=== PATIENT | female | born 1995 | race Caucasian/White ===

== ENCOUNTER 2019-02-27 16:20 | Outpatient (REF) | payer BC, SELFPAY | END 2019-02-27 16:40 | LOC: NCHCO 16:20 | PROVIDERS: PCP Nurse Practitioner Family; Visit Provider Nurse Practitioner Family | DX: R10.30 Lower abdominal pain, unspecified (principal) | CPT/HCPCS: 87086 ==

== ENCOUNTER 2020-10-24 13:19 | Emergency (ER) | payer SELFPAY ==
[2020-10-24 13:26] VITALS: BP 152/94; PULSE 109; RESP 17; TEMP 37.1; O2SAT 100
--- NOTE | 2020-10-24 13:30 | DI.CT_ITS ---
Exam(s) CT ABDOMEN PELVIS W EXAM: CT ABDOMEN PELVIS W CLINICAL HISTORY: R mid abdomen pain, nausea. TECHNIQUE: Imaging Protocol: Axial computed tomography images with coronal and sagittal reformatted images were created and reviewed CONTRAST MATERIAL: Intravenous: Omnipaque 350 Contrast volume:100 ml Oral: / no COMPARISON: US ABDOMEN ULTRASOUND (P) from 03/02/2014 US ABDOMEN ULTRASOUND (P) from 03/02/2014 FINDINGS: ABDOMEN: Lung Bases: Normal where visualized. Liver: Normal density. No measurable mass. Gallbladder and biliary tract: No radiodense calculus or dilation. Pancreas: Normal density, no abnormal calcifications or inflammatory process. Spleen: Normal. Kidneys: Normal size, contour and axis. No radiodense stones or obstructive uropathy. No masses seen. Multi focal patchy areas of decreased perfusion in the right kidney, suspicious for pyelonephritis. There is no Rox nephric collection. The left kidney appears normal. Adrenal glands: No masses seen. Abdominal Aorta: Abdominal portion non-dilated. PELVIS: Bladder: Symmetric distention, no gross wall thickening. No stones. Bowel: Somewhat limited evaluation due to lack of intra-abdominal fat and lack of oral contrast. No obstruction or bowel wall thickening. Peritoneal cavity: Small amount of fluid in the low pelvis, likely physiologic. Bones: Within normal limits. Reproductive organs: Within normal limits. No evidence of ovarian cyst. Lymph nodes: Unremarkable. Impression: Multifocal areas of decreased right renal perfusion, suspicious for pyelonephritis. No stones or hyd ronephrosis. RADIATION DOSE DELIVERED: 566mGy.cm Total DLP DATA REPOSITORY: All CT scans at this facility are submitted to the National Radiology Data Registry (NRDR) Dose Index Registry (DIR) with the [employer] (A[employer]). RADIATION OPTIMIZATION: All CT scans at this facility use at least one of these dose optimization te chniques: automated exposure control; mA and/or kV adjustment per patient size (includes targeted exa ms where dose is matched to clinical indication); or iterative reconstruction.
[2020-10-24 13:45] LABS: Bilirubin Negative (Negative); Blood Small (Negative); Clarity Cloudy (Clear); Glucose Negative (Negative); Ketones Trace mg/dL (Negative); Leukocyte Esterase Small (Negative); Nitrite Negative (Negative)
--- NOTE | 2020-10-24 13:46 | W.ED.GENAD ---
Discharge Plan Disposition Patient Disposition: HOME Condition: Improving Discharge Details Clinical Impression: Pyelonephritis of right kidney Primary Care Provider: Lety Ndiaye ED Provider: Edward Herrmann Home Meds and New Rx's Prescriptions: New cephalexin 500 mg capsule 500 mg PO TID 7 Days Qty: 21 RF: 0 Continued citalopram 40 mg tablet 40 mg PO DAILY RF: 0 Discharge Instructions Instructions: Urinary Tract Infection in Women (ED) Additional Instructions: Small, frequent sips of fluids so that you maintain good hydration. May continue Tylenol and/or ibuprofen as needed for pain. Take antibiotics as prescribed until finished. Next dose tomorrow morning. Return to the ER for any acute concerns. Stand Alone Forms: PENDING COVID-19 TESTING Medical Decision Making This is an otherwise healthy 25-year-old female who presents from home complaining of gradual onset 2 nights ago of mid abdomen pain is now later on the right-sided and radiates to her flank. Is worse with movement problems associated with burning with urination, and feels similar to previous ovarian cyst. She arrives to the ER interactive, well-appearing. She is mild tachycardia at triage. She is tender in the mid abdomen and differential notes includes pyelonephritis, appendicitis, ovarian cyst or other process. IV access established, patient given parenteral analgesia, antiemetic, fluids, referred for laboratory testing, urinalysis, and CT images. Patient's labs are notable for elevated white blood cell count of 18. Urinalysis likely contaminated. CT images to show evidence of acute right pyelonephritis without other significant findings. Please see formal report. Parenteral antibiotics initiated with ceftriaxone. Patient improving, she is appropriate for trial of outpatient management. She understands indications to seek reevaluation in the ER. HPI General Mode of arrival: ambulatory. Date/Time Provider Initiated Documentation: 10/24/20 13:20. Limitations to Documentation: no limitations. Information obtained by: patient. History of Present Illness 25 year old F presents to the emergency department with the chief complaint of Right abdominal pain for 2 days, described as moderate, Quality is described as dull, and is localized to the abdomen and right. Patient reports radiation to back. Patient started experiencing this day(s) and it has been constant and colicky. Rest improves symptom(s), Movement worsens symptoms . Patient notes fever/chills and loss of appetite. 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 Not . Last menstrual period approximately 3 weeks ago [facility] Social History Smoking/Tobacco Use Status: Never Smoking risk assessment performed?: Yes Drug use: Never Do you feel safe at home: Yes Do you feel safe in your relationship?: Yes Female Reproductive History Menstrual control method: implanted Exam Narrative Exam Narrative: GEN: awake, alert, oriented 3. Pleasant, well groomed, interactive. HEAD: Normocephalic, atraumatic ENT: Mucous membranes moist, oropharynx unremarkable, External ear exam unremarkable EYES: PERRL, EOMI NECK: Full ROM, no ALVA, no menigismus CHEST/RESP: Nontender, clear to auscultation bilateral, no wheeze/rhonchi/rales CARDIOVASCULAR: RRR, no murmur, rub caterina. 2+ Rad pulse bilateral ABDOMEN: Soft, right mid abdomen tenderness with mild rebound, no mass. +Bowel sounds EXT: Full ROM, no edema, no rash Neuro: Grossly normal neurologic exam, conversant, interactive. Psych: Speech fluent, thoughts congruent, affect normal Course Vital Signs Vital signs: Vital Signs Temperature 37.1 C 10/24/20 13:26 Pulse 109 H 10/24/20 13:26 Respiratory Rate 17 10/24/20 13:26 Blood Pressure 152/94 H 10/24/20 13:26 Pulse Oximetry 100 10/24/20 13:26 Temperature 37.1 C 10/24/20 13:26 Temperature Source Temporal Artery Scan 10/24/20 13:26 Pulse 109 H 10/24/20 13:26 Respiratory Rate 17 10/24/20 13:26 Respiratory Effort 10/24/20 13:29 Blood Pressure 152/94 H 10/24/20 13:26 Blood Pressure Position Sitting 10/24/20 13:26 Pulse Oximetry 100 10/24/20 13:26 Oxygen Delivery Method Room Air 10/24/20 13:26 Oxygen Flow Rate 0 10/24/20 13:26 Pain Level 8 10/24/20 13:26 Lab/Test Results Lab/Test Results: POC- Test(urine) Negative
[2020-10-24 13:56] LABS: Bacteria Many HPF (Negative); C & S Indicated? No/Sq. Contamination; Casts Negative LPF (Negative); Crystals Negative HPF (Negative); Epithelial Cells Many HPF (Negative); Mucus Negative (Negative); WBC 20-50 HPF (0-5)
[2020-10-24 13:58] LABS: Absolute Basophil Count 0.04 10^3/uL (0.0-0.2); Absolute Eosinophil Count 0.05 10^3/uL (0.0-0.7); Absolute Lymphocyte Count 1.24 10^3/uL (1.2-3.4); Absolute Monocyte Count 0.85 10^3/uL (0.1-0.8); Basophils % 0.2; Eosinophils % 0.3; HCT 37.3 % (36.0-46.0); HGB 12.2 g/dL (11.2-15.7); Immature Grans % 1.1; Lymphocytes % 6.8; MCH 29.7 pg (27.0-33.0); MCHC 32.7 % (32.0-36.0); MCV 90.8 fL (80-95); MPV 11.7 fL (8.0-11.0); Monocytes % 4.7; Neutrophils % 86.9; Nucleated RBC 0 %; Platelet Count 170 10^3/uL (130-400); RBC 4.11 10^6/uL (3.93-5.22); RDW 12.4 % (11.7-14.6); RDW-SD 41.1 fL; WBC 18.18 10^3/uL (4.4-10.8)
[2020-10-24 14:15] LABS: Lipase 47 U/L (73-393)
[2020-10-24 14:18] LABS: ALT 22 U/L (14-59); AST 13 U/L (15-37); Alkaline Phosphatase 71 U/L (46-116); Anion Gap 9.4 mmol/L (3-11); BUN 7 mg/dL (7-18); Bilirubin, Total 1.6 mg/dL (0.2-1.0); CO2 26.6 mmol/L (21.0-32.0); CREATININE 0.8 mg/dL (0.55-1.02); Chloride 100 mmol/L (98-107); Glucose 111 mg/dL (74-106); Potassium 3.4 mmol/L (3.5-5.1); Sodium 136 mmol/L (136-145)
[2020-10-24] MEDS: Omnipaque 350 MG/ML 100 ML BTL IJ (14:19)
[2020-10-24] MEDS: Normal Saline - Diluent 50 ML VIAL IV (14:20)
[2020-10-24] MEDS: Ondansetron 4 MG/2 ML VIAL IVP (14:31)
[2020-10-24] MEDS: Normal Saline Flush 10 ML SYR IVP (14:31)
[2020-10-24 14:33] VITALS: BP 133/78; PULSE 110; RESP 16; O2SAT 97
[2020-10-24] MEDS: Normal Saline 1,000 ML 1000 ML IV (14:33)
[2020-10-24] MEDS: cefTRIAXone 1 GM/50 ML BAG IVPB (14:51)
[2020-10-24 14:52] VITALS: TEMP 37.4
[2020-10-24 15:22] LABS: Bilirubin Negative (Negative); Blood Small (Negative); Clarity Cloudy (Clear); Glucose Negative (Negative); Ketones Negative (Negative); Leukocyte Esterase Trace (Negative); Nitrite Negative (Negative); Specific Gravity 1.015 (1.005-1.025)
[2020-10-24 15:30] LABS: Bacteria Moderate HPF (Negative); C & S Indicated? Yes; Casts Negative LPF (Negative); Crystals Negative HPF (Negative); Epithelial Cells Few HPF (Negative); Mucus Negative (Negative)
[2020-10-24] MEDS: Ketorolac 15 MG/ML VIAL IM (15:33)
[2020-10-24] MEDS: Cephalexin 500 MG CAP, 2 CAPS/BTL PO (15:33)
[2020-10-24 16:27] VITALS: BP 126/75; PULSE 110; RESP 18; TEMP 38.3; O2SAT 97
[2020-10-24] MEDS: Acetaminophen 500 MG TAB 1000 MG PO (16:35)
[2020-10-24 17:11] VITALS: BP 117/47; PULSE 107; RESP 17; TEMP 37.5; O2SAT 97
[2020-10-25 12:07] LABS: COVID-19 RT-PCR UVMMC Result Negative (Negative)
--- NOTE | 2020-10-25 18:00 | NUR.NOTE ---
Spoke with patient, verified identity and relayed negative covid test results to her.
== END 2020-10-24 17:08 | disposition home or self-care (01) ==
PROVIDERS: Emergency Provider Emergency Medicine; PCP Family Medicine
DX: N12 Tubulo-interstitial nephritis, not specified as acute or chronic (principal)
CPT/HCPCS: 36415; 80053; 81025; 83690; 96361; 96365; 96372; 96375; 99285; U0003; 74177; 81003; 81015; 85025; 87086; 99283; J0696; J1885; J2405; J3490

== ENCOUNTER 2021-05-14 13:16 | Outpatient (REF) | payer SELFPAY ==
--- NOTE | 2021-05-14 11:30 | PAPFT_PTH ---
PATIENT: Marcela Lugo LOC: NCN #:[id number] AGE/SX: 25/F ROOM: RE05/14/[address]: Lety Ndiaye : 1995 BED: DIS: 05/14/2021 SPEC #: [id number] RECD: 05/14/21 17:20 STATUS: MELVA REMyra #: [id number] TRAVIS: 05/14/21 11:[address]: Lety Ndiaye DEPT: [facility] Cytology RECD BY: Marichuy La Tissues: 1 - CX/ENDOCX FOR PAP SMEARS Procedures: PAP THIN PREP/UVM Screening Comments: [id number] (CHLAMYDIA/GC)
[2021-05-16 10:14] LABS: Chlamydia Result Negative (Negative); GC Result Negative (Negative)
== END 2021-05-14 13:17 | disposition home or self-care (01) ==
LOC: NCHCN 13:16
PROVIDERS: PCP Family Medicine; Visit Provider Family Medicine
DX: Z12.4 Encounter for screening for malignant neoplasm of cervix (principal); Z11.3 Encounter for screening for infections with a predominantly sexual mode of transmission
CPT/HCPCS: 87491; 87591; 88142

== ENCOUNTER 2022-01-29 21:40 | Emergency (ER) | payer SELFPAY ==
[2022-01-29 21:44] VITALS: BP 142/105; PULSE 98; RESP 18; TEMP 36.9; O2SAT 99
--- NOTE | 2022-01-29 22:05 | ED.GENADUL_ITS ---
Discharge Plan Disposition Patient Disposition: HOME Condition: Improving Discharge Details Clinical Impression: Laceration of left index finger Primary Care Provider: Lety Ndiaye ED Provider: Edward Herrmann Home Meds and New Rx's Prescriptions: Continued citalopram 40 mg tablet 40 mg PO DAILY Label Comments: TAKE 1 TABLET BY MOUTH EVERY DAY Discharge Instructions Instructions: Finger Laceration (ED) Additional Instructions: Leave current dressing in place 24 hours, then may remove and leave bandage in place for additional 24 hours, then may begin once daily gentle soap and water cleanse, pat dry and replace bandage. Return in 7 to 10 days for suture removal. Return sooner if you develop a fever, red, foul-smelling discharge from the wound or any other acute concern. Medical Decision Making 26-year-old female who suffered a laceration at home on a dish in her sink. It is on the volar aspect of her left index finger. The distal motor and sensory exam is normal. The wound was anesthetized, examined in a bloodless field, liberally irrigated, no evidence of foreign body seen. Prepped and draped in standard sterile fashion and repaired with 3 interrupted nylon sutures. Patient's tetanus is up-to-date. She is a good candidate for outpatient management and will return for suture removal. HPI General Mode of arrival: ambulatory . Date/Time Provider Initiated Documentation: 01/29/22 21:41 . Limitations to Documentation: no limitations . Information obtained by: patient . History of Present Illness 26 year old F presents to the emergency department with the chief complaint of Left index finger laceration at home, described as mild, Quality is described as dull and constant, and is localized to the left and upper extremity. Patient reports no radiation. Patient started experiencing this minute(s) No relieving factors improve symptom(s), No exacerbating factors reported . Patient notes denies weakness. Patient did receive the following treatments prior to arrival, other (Pressure dressing) Related Data Home Medications Medication Instructions Recorded Confirmed citalopram 40 mg tablet 40 mg PO DAILY 10/24/20 01/29/22 Allergies Allergy/AdvReac Type Severity Reaction Status Date / Time No Known Drug Allergies Allergy Unverified 01/29/22 21:46 General Stated Complaint: Laceration LENCHO: 4 Review of Systems Narrative: 6 systems reviewed and otherwise negative PFSH All Active Problems (Updated 01/29/22 @ 22:07 by Edward Herrmann MD) Pyelonephritis of right kidney (Acute) Laceration of left index finger (Acute) Anxiety (Acute 11/12/14) Contraception (Acute 02/09/14) Insertion of Nexplanon (Acute 04/27/16) Social History Smoking/Tobacco Use Status: Never Smoking risk assessment performed?: Yes Alcohol Intake: never Drug use: Never Substance use type: does not use Do you feel safe at home: Yes Do you feel safe in your relationship?: Yes Female Reproductive History Menstrual control method: implanted Exam Narrative Exam Narrative: GEN: awake, alert, oriented 3. Pleasant, well groomed, interactive. HEAD: Normocephalic, atraumatic EYES: PERRL, EOMI EXT: Full ROM, normal sensation. The left index finger has a volar laceration that is transverse and located just distal to the proximal flexor crease. Distal motor and sensory testing is normal. Neuro: Grossly normal neurologic exam, conversant, interactive. Psych: Speech fluent, thoughts congruent, affect normal Course Vital Signs Vital signs: Vital Signs Temperature 36.9 C 01/29/22 21:44 Pulse 98 H 01/29/22 21:44 Respiratory Rate 18 01/29/22 21:44 Blood Pressure 142/105 H 01/29/22 21:44 Pulse Oximetry 99 01/29/22 21:44 Temperature 36.9 C 01/29/22 21:44 Pulse 98 H 01/29/22 21:44 Respiratory Rate 18 01/29/22 21:44 Respiratory Effort Non-Labored 01/29/22 21:47 Blood Pressure 142/105 H 01/29/22 21:44 Pulse Oximetry 99 01/29/22 21:44 Pain Level 0 01/29/22 21:44 Procedures Laceration Laceration 1: Site: hand Side (If applicable): left Size (cm): 1.5 Description: linear Depth: simple, single layer Local Anesthetic: Lidocaine 1% Amount of anesthesia used (mL): 1 Pre-repair: wound explored, irrigated extensively and deep structures intact Skin layer closed with: nylon Size (cm): 4-0 Number of sutures: 3 Technique: simple, interrupted
== END 2022-01-29 22:20 | disposition home or self-care (01) ==
LOC: ER 22:22
PROVIDERS: Emergency Provider Emergency Medicine; PCP Family Medicine
DX: S61.211A Laceration without foreign body of left index finger without damage to nail, initial encounter (principal); W26.8XXA Contact with other sharp object(s), not elsewhere classified, initial encounter; Y92.009 Unspecified place in unspecified non-institutional (private) residence as the place of occurrence of the external cause
CPT/HCPCS: 12001; 99281; 99282

== ENCOUNTER 2022-02-05 16:20 | Emergency (ER) | payer SELFPAY ==
--- NOTE | 2022-02-05 16:25 | ED.GENADUL_ITS ---
Discharge Plan Disposition Patient Disposition: HOME Condition: Improving Discharge Details Clinical Impression: Encounter for removal of sutures Primary Care Provider: Lety Ndiaye ED Provider: Edward Herrmann Home Meds and New Rx's Prescriptions: Continued citalopram 40 mg tablet 40 mg PO DAILY Label Comments: TAKE 1 TABLET BY MOUTH EVERY DAY Discharge Instructions Additional Instructions: Return for any acute concerns. Resume normal routine and activities. Band-Aid every 2 days for the next 4 to 5 days Medical Decision Making Patient presents for uneventful suture removal following laceration repair on January 29. The wound is well-appearing and healing well. HPI General Mode of arrival: ambulatory . Date/Time Provider Initiated Documentation: 02/05/22 16:24 . Limitations to Documentation: no limitations . Information obtained by: patient . History of Present Illness 26 year old F presents to the emergency department with the chief complaint of Suture removal, no, and is localized to the upper extremity. Related Data Home Medications Medication Instructions Recorded Confirmed citalopram 40 mg tablet 40 mg PO DAILY 10/24/20 01/29/22 Allergies Allergy/AdvReac Type Severity Reaction Status Date / Time No Known Drug Allergies Allergy Unverified 01/29/22 21:46 General LENCHO: 4 Review of Systems Narrative: No complaint PFSH All Active Problems (Updated 02/05/22 @ 16:27 by Edward Herrmann MD) Pyelonephritis of right kidney (Acute) Laceration of left index finger (Acute) Encounter for removal of sutures (Acute) Anxiety (Acute 11/12/14) Contraception (Acute 02/09/14) Insertion of Nexplanon (Acute 04/27/16) Social History Smoking/Tobacco Use Status: Never Smoking risk assessment performed?: Yes Alcohol Intake: never Drug use: Never Substance use type: does not use Do you feel safe at home: Yes Do you feel safe in your relationship?: Yes Female Reproductive History Menstrual control method: implanted Exam Narrative Exam Narrative: Awake alert and oriented, no acute distress. No respiratory distress Left index finger with healing volar laceration. No surrounding erythema
[2022-02-05 16:27] VITALS: BP 118/76; PULSE 90; RESP 18; TEMP 36.9; O2SAT 99
== END 2022-02-05 16:57 | disposition home or self-care (01) ==
PROVIDERS: Emergency Provider Emergency Medicine; PCP Family Medicine
DX: S61.211D Laceration without foreign body of left index finger without damage to nail, subsequent encounter (principal); X58.XXXD Exposure to other specified factors, subsequent encounter
CPT/HCPCS: 99281; 99282

== ENCOUNTER 2023-01-05 10:15 | Emergency (ER) | payer BC, SELFPAY ==
[2023-01-05 10:52] VITALS: BP 128/69; PULSE 82; RESP 18; TEMP 37.3; O2SAT 98
--- NOTE | 2023-01-05 12:13 | ED.GENADUL_ITS ---
Discharge Plan Disposition Patient Disposition: Home Condition: Stable Discharge Details Clinical Impression: Abscess, perirectal Primary Care Provider: Lety Ndiaye ED Provider: Jaylin Nelson Home Meds and New Rx's Prescriptions: New cephalexin 500 mg tablet 500 mg PO BID 10 Days Qty: 20 0RF No Action citalopram 40 mg tablet 40 mg PO DAILY Patient Comments: TAKE 1 TABLET BY MOUTH EVERY DAY Discharge Instructions Instructions: Abscess (ED) Additional Instructions: An antibiotic was sent to the pharmacy we have on file for you [facility] in [place]. Please take it twice daily with yogurt or probiotic as directed for the next 10 days. Please do lukewarm clean sitz bath's for the next few days. Clean the area well with soap and water. Allow to air dry. The numbing medication will wear off in approximately 2 to 4 hours. Please take Tylenol or Ibuprofen with food every 4-6 hours as needed for pain and swelling. Please follow-up with general surgery within the next week, you are placed on a care management list to follow-up. You may also choose to follow-up with women's wellness. Follow up with primary care provider in 3-5 days. Return to ED sooner if any worsening pain, fever chills, vaginal discharge or feeling sicker at any time or concerns. Increase oral fluids. Referrals: Lety Ndiaye [Primary Care Provider] - Salma Becker CNM [[facility] NURSE DENTAL COORDINATOR] - 5 days ([facility]) Nicolette Cole MD [ [facility] STAFF PHYSICIAN] - 1 week Discharge Data Discharge Date/Time-TO BE ENTERED AT DEPARTURE: 01/05/23 13:48 Medical Decision Making 27-year-old female presents to the ER with a chief complaint of a abscess to her right inner buttock which began 2 days ago. She reports it was about golf ball size painful she was able to express some fluid last night which relieved the pain somewhat. She does have 2 enlarged lymph nodes noted to her left anterior groin. She denies any fever or chills. Denies any problems urinating, denies vaginal discharge or itching, or concerns for STDs, no abdominal pain denies any nausea vomiting diarrhea or any other systemic symptoms. She has not taken any Tylenol ibuprofen prior to arrival. Denies any other associated symptoms. She does have a small approximately 1-1/2 cm raised area at approximately 7:00 to her rectum on her left buttock with surrounding erythema. Small amount of fluctuance noted with palpation. We will place topical let, urine test ordered, will plan for I&D. We will give patient cephalexin and referral to general surgery within a week. I did discuss follow-up care and strict return instructions if any worsening she verbalizes understanding. I also discussed sitz bath's with patient. Area cleaned with alcohol swab, abscess infiltrated with 1% lidocaine and 0.5% bupivacaine, anesthesia achieved patient tolerated with some mild difficulty. Area cleaned with chlorhexidine, incision made with a #11 blade, no purulent drainage expressed. Will give patient follow-up with general surgery and women's wellness she does also have a PCP. I did discuss strict return instructions and home care including sitz bath's and we will give her 10 days of cephalexin. She verbalizes understanding. At this time patient is nontachycardic, denies any abdominal pain no systemic symptoms. Differential diagnosis includes but not limited to perirectal abscess, cellulitis, vaginal infection, simple abscess with lymphadenopathy HPI General Mode of arrival: ambulatory . Date/Time Provider Initiated Documentation: 01/05/23 12:05 . Limitations to Documentation: no limitations . Information obtained by: patient, RN notes reviewed and old records reviewed . HPI Narrative: 27-year-old female presents to the ER with a chief complaint of a abscess to her right inner buttock which began 2 days ago. She reports it was about golf ball size painful she was able to express some fluid last night which relieved the pain somewhat. She does have 2 enlarged lymph nodes noted to her left anterior groin. She denies any fever or chills. Denies any problems urinating, denies vaginal discharge or itching, or concerns for STDs, no abdominal pain denies any nausea vomiting diarrhea or any other systemic symptoms. She has not taken any Tylenol ibuprofen prior to arrival. Denies any other associated symptoms. She does have a small approximately 1-1/2 cm raised area at approximately 7:00 to her rectum on her left buttock with surrounding erythema. Small amount of fluctuance noted with palpation. Related Data Home Medications Medication Instructions Recorded Confirmed citalopram 40 mg tablet 40 mg PO DAILY 10/24/20 01/05/23 cephalexin 500 mg tablet 500 mg PO BID 10 days #20 tabs 01/05/23 Previous Rx's Medication Instructions Recorded cephalexin 500 mg tablet 500 mg PO BID 10 days #20 tabs 01/05/23 Allergies Allergy/AdvReac Type Severity Reaction Status Date / Time No Known Drug Allergies Allergy Unverified 01/05/23 12:13 General Stated Complaint: RashLesion LENCHO: 4 PFSH All Active Problems (Updated 01/05/23 @ 13:37 by Jaylin Nelson NP) Pyelonephritis of right kidney (Acute) Abscess, perirectal (Acute) Anxiety (Acute 11/12/14) Contraception (Acute 02/09/14) Insertion of Nexplanon (Acute 04/27/16) Social History Smoking/Tobacco Use Status: Never Smoking risk assessment performed?: Yes Alcohol Intake: never Drug use: Never Substance use type: does not use Do you feel safe at home: Yes Do you feel safe in your relationship?: Yes Female Reproductive History Menstrual control method: implanted Exam Back/Spine/Pelvis Pelvis: buttock tenderness on the left Sacrum: swelling (Left groin lymphadenopathy) on the left and tenderness on the left Back/spine/pelvis image: 1. Approximately 5 cm surrounding area of erythema 2. Approximately 1 cm raised area with a central open area with fluctuance no active draining at this time. Course Vital Signs Vital signs: Vital Signs Temperature 37.3 C 01/05/23 10:52 Pulse 82 01/05/23 10:52 Respiratory Rate 18 01/05/23 10:52 Blood Pressure 128/69 01/05/23 10:52 Pulse Oximetry 98 01/05/23 10:52 Temperature 37.3 C 01/05/23 10:52 Pulse 82 01/05/23 10:52 Respiratory Rate 18 01/05/23 10:52 Respiratory Effort Normal, Non-Labored 01/05/23 10:54 Blood Pressure 128/69 01/05/23 10:52 Blood Pressure Position Sitting 01/05/23 10:52 Pulse Oximetry 98 01/05/23 10:52 Oxygen Delivery Method Room Air 01/05/23 10:52 Oxygen Flow Rate 0 01/05/23 10:52 Pain Level 2 01/05/23 10:52 Procedures Abscess I/D Site: Rox-rectal Side (if applicable): Left Local Anesthetic: Lidocaine 1%, Bupivicaine 0.5% and Other Anesthetic (Topical Let) Amount of anesthesia used (mL): 4 Technique: Incised with #11 Blade Amount of fluid expressed (mL): 2 (No purulent drainage expressed, only bleeding.) Irrigation: No Packing used?: None Complications: Bleeding
[2023-01-05] MEDS: Cephalexin 500 MG CAP PO (12:18)
[2023-01-05] MEDS: Ibuprofen 600 MG TAB PO (12:18)
[2023-01-05] MEDS: Lidocaine/Epinephri/Tetracaine Topical Gel 3 ML TP (12:19)
--- NOTE | 2023-01-05 13:22 | NUR.NOTE ---
Referral faxed to [facility] Surgery for rudy rectal abscess/I&D done. For 1 week. Nursing Note:
== END 2023-01-05 13:48 | disposition home or self-care (01) ==
PROVIDERS: Emergency Provider Registered Nurse Emergency; PCP Family Medicine
DX: K61.1 Rectal abscess (principal)
CPT/HCPCS: 10060

== ENCOUNTER 2024-01-05 13:49 | Outpatient (REF) | payer BC, SELFPAY ==
--- NOTE | 2024-01-05 13:30 | PAPFT_PTH ---
PATIENT: Marcela Lugo LOC: MEMO U#:[id number] AGE/SX: 28/F ROOM: RE01/05/[address]: Domonique Hampton NP : 1995 BED: DIS: 01/05/2024 SPEC #: [id number] RECD: 01/05/24 17:06 STATUS: MELVA REQ #: [id number] TRAVIS: 01/05/24 13:[address]: Domonique Hampton NP DEPT: [facility] Cytology RECD BY: Marichuy La ENTERED: 01/05/24 17:06 SP TYPE: PAPFT OTHR DR: Lety Ndiaye Tissues: 1 - CX/ENDOCX FOR PAP SMEARS Procedures: PAP THIN PREP/UVM Screening Comments: [id number]
== END 2024-01-05 13:50 | disposition home or self-care (01) ==
LOC: LBN 13:49
PROVIDERS: PCP Family Medicine; Visit Provider Nurse Practitioner Women's Health
DX: Z12.4 Encounter for screening for malignant neoplasm of cervix (principal)
CPT/HCPCS: 88142